=== PATIENT | female | born 1965 | race Caucasian/White ===

== ENCOUNTER → 2018-05-12 09:53 | Outpatient (CLI) | payer OTHER, SELFPAY ==
--- NOTE | 2018-05-12 10:25 | RAD_ITS ---
PROCEDURE: Fluoroscopic guided right shoulder Injection DATE: May 12, 2018. INDICATION: Female, 52 years old. Chronic right shoulder pain. PHYSICIAN: Cullen De Luna M.D. MEDICATIONS: 12 mg of betamethasone and 4 cc of 1% lidocaine. 2% lidocaine administered subcutaneously for local anesthesia. ACCESS SITE: Right shoulder. NEEDLE: 22-gauge spinal needle. FLUOROSCOPY TIME (if supplied): (31 seconds) minutes/seconds FINDINGS: The risks, benefits, and alternatives to the procedure were explained to the patient. The specific risks of bleeding, infection, and neurovascular injury were detailed and accepted. Witnessed informed consent was obtained. A 22-gauge spinal needle was positioned under radiographic fluoroscopic localization. Approximately 2 cc of Isovue 300 instilled for localization purposes. Medication was then injected. The patient tolerated the procedure well without any immediate complications. The patient was placed supine with head elevated and returned to the floor in stable condition. RAD/Inj/Asp Eliezer Jt Should/Hip/Knee IMPRESSION: 1. Successful fluoroscopic guided right shoulder injection. Electronically Signed: Cullen De Luna MD at 12:22 EST , Service support ,
== END ==
PROVIDERS: Family Provider Family Medicine; PCP Family Medicine; Referring Provider Specialist; Visit Provider Specialist
DX: M19.011 Primary osteoarthritis, right shoulder (principal)
CPT/HCPCS: 20610; 77002; Q9965; J0702

== ENCOUNTER → 2023-05-20 | Outpatient (CLI) | payer OTHER, SELFPAY | END | disposition home or self-care (01) | PROVIDERS: PCP Family Medicine; Visit Provider Physician Assistant | DX: R30.0 Dysuria (principal) | CPT/HCPCS: 87086; 87088 ==

== ENCOUNTER → 2023-10-14 | Outpatient (CLI) | payer OTHER, SELFPAY ==
--- NOTE | 2023-10-14 15:47 | CT_ITS ---
STUDY: CT ABDOMEN AND PELVIS WITHOUT CONTRAST REASON FOR EXAM: Female, 58 years old. ABD PAIN RADIATION DOSAGE (If Supplied By Facility): CTDIvol = ( 19.23 ) mGy, DLP = ( 834.18 ) mGycm TECHNIQUE: Transaxial images were obtained from the dome of the diaphragm to the symphysis pubis without oral contrast, and without intravenous contrast. Sagittal and coronal images were reconstructed. Individualized dose optimization techniques were used for this CT. COMPARISON: None. FINDINGS: The visualized lung bases are unremarkable. The visualized portions of the heart are within normal limits. There is decreased attenuation of the liver consistent with steatosis. There are surgical clips in the gallbladder fossa consistent with a prior cholecystectomy. Normal spleen. Normal pancreas. Normal bilateral adrenal glands. Normal right kidney. Normal left kidney. There is a small hiatal hernia. Normal small intestine. There is diverticulosis, with thickening of the colon wall, and pericolonic inflammation changes consistent with acute diverticulitis. No loculated fluid collection to suggest abscess. No pneumoperitoneum diffuse disc perforation. The appendix is visualized and appears normal. Normal abdominal aorta. Normal inferior vena cava. Normal retroperitoneum. Normal urinary bladder. Normal abdominal wall. Normal osseous structures. CT/Abdomen/Pelvis without Cont IMPRESSION: 1. Diverticulitis of the distal descending colon without abscess or perforation. 2. Small hiatal hernia. 3. Status post cholecystectomy with fatty infiltration the liver. Electronically Signed: Christian Muhammad MD at 17:09 EDT ,
== END | disposition home or self-care (01) ==
LOC: CT 15:46
PROVIDERS: PCP Family Medicine; Referring Provider Nurse Practitioner; Visit Provider Nurse Practitioner
DX: R10.9 Unspecified abdominal pain (principal)
CPT/HCPCS: 74176

== ENCOUNTER → 2023-11-12 | Outpatient (CLI) | payer SELFPAY, OTHER ==
--- NOTE | 2023-11-12 15:35 | CT_ITS ---
CT of the right shoulder without contrast INDICATION: Shoulder pain, arthroplasty. TECHNIQUE: Multiple thin section axial CT images of the right shoulder were obtained without the administration of intravenous contrast and filmed in soft tissue and bone windows. Furthermore, multiple sagittal and coronal reconstructions were performed. There is limiting techniques were utilized. FINDINGS: No abnormal mass, lymphadenopathy, or fluid collection. Os acromiale a which is a normal variant. No severe acromioclavicular joint arthrosis or arthrosis of the synchondrosis. Status post right shoulder reverse arthroplasty. There is inferior subluxation of the humeral component of the arthroplasty prosthesis. Clinical correlation is recommended. There is radiolucency surrounding the stem of the prosthesis within the proximal humerus. There is a subacute or chronic fracture of the midshaft of the humerus surrounding the stem of the prosthesis with some callus formation but an apparent corticated fracture line. CT/Extremity Upper without Contra IMPRESSION: Status post right shoulder reverse arthroplasty with inferior subluxation of the humeral component. Suspect loosening of the humeral component of the prosthesis. Chronic healing fracture the midshaft of the humerus surrounding the stem of the prosthesis. Electronically Signed: Christian Muhammad MD at 12:01 EDT ,
== END | disposition home or self-care (01) ==
PROVIDERS: PCP Family Medicine
DX: Z96.611 Presence of right artificial shoulder joint (principal)
CPT/HCPCS: 73200

== ENCOUNTER 2024-12-06 12:52 | Emergency (ER) | payer OTHER, SELFPAY ==
[2024-12-06 12:53] VITALS: BP 161/102; PULSE 66; RESP 18; TEMP 36.9; O2SAT 97; BMI 37.9
--- NOTE | 2024-12-06 13:15 | CT_ITS ---
PROCEDURE: ABDOMEN/PELVIS W IV CONT ONLY 12/06/2024 REASON FOR EXAM: LOWER QUADRANT, MAINLY RLQ TECHNIQUE: Procedure Code: [id number] Modality: CT Procedure: ABDOMEN/PELVIS W IV CONT ONLY Coronal and Sagittal reconstruction series were provided. CONTRAST: Isovue 370 VOLUME: 99 mL One or more dose reduction techniques were used (e.g., Automated exposure control, adjustment of the mA and/or kV according to patient size, use of iterative reconstruction technique. RADIATION DOSE SUMMARY: CTDlvol: 34 mGy DLP: 1100 mGycm COMPARISON: October 14, 2023 FINDINGS: Lung bases: Clear Liver: Normal Gallbladder: Cholecystectomy Spleen: Normal Pancreas: Normal Adrenals: Normal Kidneys: Normal Bladder: Normal Reproductive Organs: Uterus is normal. Ovaries are normal. Engorgement of the parametrial veins on the left. Bowel: Stomach is normal. Small bowel is normal. Scattered colonic diverticula are present and most numerous involving the sigmoid colon where there is also a short segment of circumferential thickening, edema and pericolonic stranding. No free air, phlegmon or abscess. Appendix: Normal Lymph nodes: None appear enlarged Vasculature: Normal Peritoneum / Retroperitoneum: No free air, free fluid or mass. Bones: Mild facet hypertrophy lower lumbar spine CT/Abdomen/Pelvis W IV Cont ONLY IMPRESSION: 1. Acute uncomplicated sigmoid diverticulitis. 2. Normal appendix. 3. Cholecystectomy Reading Location: [facility]
--- NOTE | 2024-12-06 13:16 | ED.VIS.GI ---
HPI HPI - GI History of Present Illness Chief Complaint: Abd Pain Narrative Narrative: Patient is a 59-year-old female presenting to the emergency department for right lower quadrant abdominal pain that started about 3 days ago. States initially it was coming and going in waves. She states now it is pretty constant. She endorses some irritation while urinating. But denies dysuria or hematuria. States she talked to her primary care doctor who sent her in for evaluation. She denies any nausea or vomiting. Had a bowel movement this morning and it was normal. No blood noted. Denies any vaginal pain, discharge or bleeding. Reports that she is been taking Motrin for the pain. States the last time this happened she had a UTI. Has a past abdominal surgical history of a cholecystectomy. [facility] Medical History (Updated 12/06/24 @ 16:[address] Jackie Del Toro MD) Right humeral fracture Hypertension Diverticulosis Cholecystectomy planned Home Medications ?Medication ?Instructions ?Recorded ?Last Taken ?Type nitrofurantoin macrocrystal 100 mg 100 mg PO Q12H #14 caps 05/20/23 Unknown Rx capsule phenazopyridine 100 mg tablet 100 mg PO TID PRN pain 6 doses #6 05/20/23 Unknown Rx (Pyridium) tabs zolpidem [Ambien] PO 05/20/23 Unknown History ciprofloxacin HCl 500 mg tablet 500 mg PO Q12H 7 days #14 tabs 12/06/24 Unknown Rx (Cipro) hydralazine 25 mg tablet 25 mg PO TID 12/06/24 Unknown History lisinopril 40 mg tablet 40 mg PO DAILY 12/06/24 Unknown History metronidazole 500 mg tablet 500 mg PO BID 7 days #14 tabs 12/06/24 Unknown Rx zolpidem 5 mg tablet 2.5 mg PO QHS 12/06/24 Unknown History Allergy/AdvReac Type Severity Reaction Status Date / Time Penicillins Allergy Rash Verified 12/06/24 12:54 Surgical History (Updated 12/06/24 @ 14:43 by Dc Hidalgo) History of right shoulder replacement Social History Smoking Status: Never smoker ROS ROS ED ROS Narrative See HPI EXAM Physical Exam Narrative Exam Narrative: Vital signs: Reviewed General: Alert and orientedx3. No acute distress HEENT: Head is normocephalic and atraumatic, sinuses nontender, pupils equal round and reactive. Nares are patent. Oropharynx and throat exams normal. Neck: Supple without lymphadenopathy nontender Cardiovascular: Regular rate and rhythm, no murmurs. No rubs or gallops. Normal S1 and S2 Respiratory: Clear to auscultation bilaterally. No wheezes, rales, rhonchi Abdominal: Soft and mildly tender to palpation in the right lower and suprapubic quadrants. Normal bowel sounds. No guarding or rebound. Nonsurgical abdomen. No CVA tenderness to palpation on either flank. Extremities: No tenderness. No bruising. Normal range of motion. Normal sensation. Skin: No rash or redness. Neurological: Cranial nerves II through XII are grossly intact. Normal strength and sensation. Normal cerebellar function The rest of the physical exam is unremarkable Const Vital Signs: 12/06/24 12:53 12/06/24 15:02 12/06/24 16:15 Temperature 98.4 F 98.7 F 98.4 F Temperature Source Oral Oral Pulse Rate 66 76 78 Respiratory Rate 18 14 16 Blood Pressure 161/102 H 112/98 H 122/88 H Blood Pressure Mean 121 102 99 Pulse Ox 97 94 94 Oxygen Delivery Method Room Air Room Air MDM MDM MDM Narrative Medical decision making narrative: Patient is a 59-year-old female presenting to the emergency department for abdominal pain for the past 3 days. Patient was seen and examined. Vitals are stable. Resting in bed comfortably no acute distress. Differential includes but is not limited to: Appendicitis, UTI, colitis, nephrolithiasis Patient offered analgesia but declines. Labs and CT imaging ordered. CBC with no leukocytosis and a normal hemoglobin. CMP with no significant abnormalities. Lipase within normal limits. Urinalysis with no evidence of infection. CT shows acute uncomplicated sigmoid diverticulitis. Normal appendix. Cholecystectomy. Patient has no leukocytosis, no evidence of systemic infection. She stable for outpatient management of her uncomplicated diverticulitis. Given first dose of antibiotics here. She does have a penicillin allergy so ciprofloxacin and Flagyl were chosen. Sent prescription for these antibiotics as well to her pharmacy. Patient discharged from the Emergency Department. I do not feel that the patient's evaluation reveals any acute reason for admission at this time. I instructed them to either follow-up with their primary care physician or promptly return to the Emergency Department for reevaluation should symptoms worsen or new symptoms develop. I explained what symptoms would indicate the need to return to the emergency department. Shared decision making was used. The patient voiced understanding of the treatment plan and is agreeable with it. Clinical impression Uncomplicated diverticulitis History & Record Review Discussion w/independent historian: Patient and Significant other Lab Data Attestation: I reviewed the patient's lab results. Labs: Laboratory Results - last 24 hr 12/06/24 12/06/24 13:08 13:20 WBC 8.6 RBC 4.78 Hgb 14.1 Hct 41.8 MCV 87.4 MCH 29.5 MCHC 33.7 RDW Std Deviation 41.9 RDW Coeff of Kenan 13.1 Plt Count 194 MPV 10.8 Immature Gran % (Auto) 0.200 Neut % (Auto) 66.2 Lymph % (Auto) 22.9 Beltrami % (Auto) 8.7 Eos % (Auto) 1.7 Baso % (Auto) 0.3 Absolute Neuts (auto) 5.7 Absolute Lymphs (auto) 1.97 Nucleated RBC % 0 Sodium 141 Potassium 3.8 Chloride 106 Carbon Dioxide 23.4 Anion Gap 12 BUN 11 Creatinine 0.72 Estim Creat Clear Calc 87.65 Est GFR (MDRD) Non-Af 95 BUN/Creatinine Ratio 15.8 Glucose 114 H Calcium 9.7 Total Bilirubin 0.31 AST 20 ALT 21 Alkaline Phosphatase 81 Total Protein 7.5 Albumin 4.2 Globulin 3.3 Albumin/Globulin Ratio 1.3 Lipase 37 Urine Color Straw Urine Clarity Clear Urine pH 6.5 Ur Specific Sullivan 1.010 Urine Protein 15 H Urine Glucose (UA) Normal Urine Ketones Negative Urine Occult Blood Negative Urine Nitrite Negative Urine Bilirubin Negative Urine Urobilinogen Normal Ur Leukocyte Esterase Negative Urine RBC 0 SEEN Urine WBC 0 SEEN Ur Squamous Epith Cells 0-5 SEEN Urine Bacteria 0 SEEN Urine Mucus 0 SEEN Radiography Diagnostic Testing: Clinical Impression(s) from Imaging Studies Abdomen/Pelvis CT 12/06/24 13:15 IMPRESSION: 1. Acute uncomplicated sigmoid diverticulitis. 2. Normal appendix. 3. Cholecystectomy Reading Location: [facility] Discharge Plan Triage Chief Complaint: Abd Pain ED Provider: Jackie Del Toro Dx/Rx/DC Orders Clinical Impression: Diverticulitis Instructions: ED Diverticulitis Prescriptions: New ciprofloxacin HCl [Cipro] 500 mg tablet 500 mg PO Q12H 7 Days Qty: 14 0RF metronidazole 500 mg tablet 500 mg PO BID 7 Days Qty: 14 0RF No Action zolpidem [Ambien] PO nitrofurantoin macrocrystal 100 mg capsule 100 mg PO Q12H Qty: 14 0RF Rx Instructions: must administer with a meal/food phenazopyridine [Pyridium] 100 mg tablet 100 mg PO TID PRN (Reason: pain) Qty: 6 0RF hydralazine 25 mg tablet 25 mg PO TID zolpidem 5 mg tablet 2.5 mg PO QHS lisinopril 40 mg tablet 40 mg PO DAILY Primary Care Provider: Haritha Almeida Referrals: Haritha Almeida NP-C [Primary Care Provider] - 3-5 Days Activity Restrictions/Additional Instructions: Take the antibiotics as prescribed. Follow-up with your primary care doctor as soon as possible. If you develop any worsening abdominal pain, nausea, vomiting, fevers you need to return to the ED immediately. Print Language: Pashto Disposition Disposition: Home, Self Care Discharge Date/Time: 12/06/24 16:16
[2024-12-06 13:25] LABS: Hematocrit 41.8 % (37-47); Hemoglobin 14.1 g/dL (12.0-15.0); Immature Granulocytes Count 0.020 X10^3/uL (0.0-0.0); Mean Corp Hgb Conc 33.7 g/dL (32-36); Mean Corpuscular Volume 87.4 fL (81-99); Mean Platelet Vol. 10.8 fl (6.2-12.0); NRBC Flagged by Analyzer 0 % (0-5); Platelet Count 194 K/mm3 (150-450); RBC Distribution Width CV 13.1 % (11.6-14.6); RBC Distribution Width SD 41.9 fl (35.1-43.9); Red Blood Count 4.78 M/mm3 (4.2-5.4); White Blood Count 8.6 K/mm3 (4.4-11.0)
[2024-12-06 13:27] LABS: Mucous, Urine 0 SEEN /hpf (<or=2+); Red Blood Cells-Urine 0 SEEN /hpf (0-5)
[2024-12-06 13:29] LABS: Color, Urine Straw (Yellow); Glucose, Dipstick Normal (Normal); Ketone-Dipstick Negative (Negative); Leukocyte Esterase-Dipstick Negative /ul (Negative); Nitrite-Dipstick Negative (Negative); Occult Blood-Urine Negative /ul (Negative); Protein-Dipstick 15 mg/dl (Negative); Specific Gravity, Urine 1.010 (1.002-1.030); Urine Bilirubin Dipstick Negative (Negative)
[2024-12-06 13:40] LABS: Squamous Epithelial Cells - UA 0-5 SEEN /hpf (5-10)
[2024-12-06 14:08] LABS: AST(SGOT) 20 U/L (<=31); Alanine Aminotransfer ALT/SGPT 21 U/L (<=34); Albumin, Serum 4.2 g/dL (3.4-4.8); Alkaline Phosphatase 81 U/L (35-104); Anion Gap 12 (5-15); BUN 11 mg/dL (4-19); BUN/Creat Ratio 15.8 RATIO (10-20); Calcium,Total 9.7 mg/dL (7.6-11.0); Carbon Dioxide 23.4 mmol/L (21.0-32.0); Chloride 106 mmol/L (98-108); Estimated Creatinine Clearance 87.65 ml/min (50-250); Globulin 3.3 g/dL (2.2-4.2); Glucose 114 mg/dL (70-99); Lipase 37 U/L (13-75); Potassium 3.8 mmol/L (3.3-5.1)
[2024-12-06 15:02] VITALS: BP 112/98; PULSE 76; RESP 14; TEMP 37.1; O2SAT 94
[2024-12-06 16:15] VITALS: BP 122/88; PULSE 78; RESP 16; TEMP 36.9; O2SAT 94
== END 2024-12-06 16:16 | disposition home or self-care (01) ==
PROVIDERS: Emergency Provider Student in an Organized Health Care Education/Training Program; PCP Nurse Practitioner Family; Visit Provider Student in an Organized Health Care Education/Training Program
DX: K57.32 Diverticulitis of large intestine without perforation or abscess without bleeding (principal); I10 Essential (primary) hypertension; R10.31 Right lower quadrant pain; Z90.49 Acquired absence of other specified parts of digestive tract; Z79.899 Other long term (current) drug therapy; Z96.611 Presence of right artificial shoulder joint
CPT/HCPCS: 74177; 80053; 81001; 83690; 85025; 99284; Q9967; A4216